=== PATIENT | male | born 1970 | race Asian ===

== ENCOUNTER 2018-05-26 20:07 | Emergency (ER) | payer OTHER, MEDICAID, SELFPAY ==
[2018-05-26 20:17] VITALS: BP 168/103; PULSE 83; RESP 16; TEMP 36.8; O2SAT 100; BMI 26.6
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
[2018-05-26 21:14] LABS: Lactate (Lactic Acid) 1.5 mmol/L (0.7-2.1)
[2018-05-26 21:15] LABS: BUN Creatinine Ratio 25.6 (6-22); Blood Urea Nitrogen 23 mg/dL (9-20); C-Reactive Protein Quant 1.1 mg/dL (<1.0); Carbon Dioxide 26 mmol/L (22-32); Chloride 99 mmol/L (98-107); Estimated Glomerular Filt Rate > 60.0 mL/min (>60); HEMOLYSIS 104 (0-50); Potassium 5.1 mmol/L (3.4-5.1); Sodium 138 mmol/L (137-145)
[2018-05-26 21:18] LABS: Glucose 346 mg/dL (70-100)
[2018-05-26 21:27] LABS: Basophils Absolute Auto 100 /uL (0-100); Basophils Percent Auto 0.8 % (0-2); Eosinophils Absolute Auto 200 /uL (0-450); Eosinophils Percent Auto 1.7 % (2-4); Hematocrit 49.4 % (41-53); Hemoglobin 17.8 g/dL (13.5-17.5); Lymphocytes Absolute Auto 1900 /uL (1100-4500); Lymphocytes Percent Auto 21.6 % (25-40); Mean Corpuscular HGB Conc 36.1 % (30-36); Mean Corpuscular Hemoglobin 31.1 PG (26-34); Mean Corpuscular Volume 86.2 fL (80-100); Monocytes Absolute Auto 400 /uL (0-900); Monocytes Percent Auto 4.2 % (3-14); Neutrophils Absolute Auto 6400 /uL (1500-7000); Neutrophils Percent Auto 71.7 % (50-75); Platelet Count 305 X10^3/uL (150-400); Red Blood Cell Count 5.73 X10^6/uL (4.5-5.9); Red Cell Distribution Width 12.5 % (11.6-14.8); White Blood Cell Count 8.9 X10^3/uL (4.5-11.0)
--- NOTE | 2018-05-26 21:35 | PC.NURSE ---
Pt requested pain medicine, 2mg of Dilaudid. States he has ran out of oxys that wernt working. Pt mother stated she had oxys prescribed to her for a face peel and she gave the leftovers to her son. Provider aware pt is requesting pain medication.
[2018-05-26] MEDS: HYDROCODONE/ACET 5/325 TABLET 1 TAB PO (21:45)
--- NOTE | 2018-05-26 21:46 | PC.NURSE ---
entered room with oral pain medication and pt stated Is that 5mg? That's not going to do anything. I explaind it was a norco with 5mg of hydrocodone and 325 apap and pt stated I know.
[2018-05-26 22:14] LABS: Add Manual Diff / Slide Review SLIDE REVIEW
[2018-05-26 22:15] VITALS: BP 142/97; PULSE 90; O2SAT 98
[2018-05-26 22:15] LABS: RBC Morphology Normal Morphology
[2018-05-26 22:28] LABS: Erythrocyte Sedimentation Rate 30 MM/HR (0-15)
--- NOTE | 2018-05-26 22:35 | PC.NURSE ---
Pt refeses splinting of right forearm. Pt states you guys cant prescribe any pain medication and it hurts worse with the cast on. Provider notified and aknowledged information.
--- NOTE | 2018-05-26 23:22 | PC.NURSE ---
Pt signed AMA form after [facility] discussed benefits and risks of refusal of splint. Pt mother signed as witness. AMA form in chart.
== END 2018-05-26 23:27 | disposition home or self-care (01) ==
PROVIDERS: Emergency Provider Emergency Medicine
DX: S52.101A Unspecified fracture of upper end of right radius, initial encounter for closed fracture (principal)
CPT/HCPCS: 36591; 73090; 73110; 80048; 83605; 84145; 85025; 85651; 86140; 99282; 99283

== ENCOUNTER 2018-06-02 04:11 | Emergency (ER) | payer OTHER, MEDICAID, SELFPAY ==
[2018-06-02 04:29] VITALS: BP 163/112; PULSE 83; RESP 20; TEMP 36.6; O2SAT 98; BMI 26.6
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
[2018-06-02 05:00] VITALS: BP 146/107; PULSE 79; RESP 18; O2SAT 98
== END 2018-06-02 05:01 | disposition home or self-care (01) ==
PROVIDERS: Emergency Provider Emergency Medicine
DX: S52.101A Unspecified fracture of upper end of right radius, initial encounter for closed fracture (principal)
CPT/HCPCS: 99282

== ENCOUNTER → 2018-06-24 13:50 | Outpatient (CLI) | payer OTHER, MEDICAID, SELFPAY ==
[2018-06-24 14:39] LABS: Hemoglobin A1C% w Est Avg Glu 9.3 % (4.0-6.0)
[2018-06-24 15:01] LABS: Alanine Aminotransferase 56 IU/L (21-72); Albumin 4.5 g/dL (3.5-5.0); Albumin Globulin Ratio 1.3 (1.0-2.8); Alkaline Phosphatase 82 U/L (38-126); Aspartate Aminotransferase 26 IU/L (17-59); BUN Creatinine Ratio 18.9 (6-22); Bilirubin Total 0.5 mg/dL (0.2-1.3); Blood Urea Nitrogen 17 mg/dL (9-20); Calcium 9.8 mg/dL (8.4-10.2); Carbon Dioxide 30 mmol/L (22-32); Chloride 98 mmol/L (98-107); Estimated Glomerular Filt Rate > 60.0 mL/min (>60); Globulin 3.6 g/dL (1.7-4.1); Glucose 266 mg/dL (70-100); HEMOLYSIS < 15 (0-50); Potassium 4.1 mmol/L (3.4-5.1); Sodium 139 mmol/L (137-145); Total Protein 8.1 g/dL (6.3-8.2)
== END ==
PROVIDERS: Visit Provider Nurse Practitioner Family
DX: E11.9 Type 2 diabetes mellitus without complications (principal)
CPT/HCPCS: 36415; 80053; 83036

== ENCOUNTER → 2018-09-03 12:03 | Outpatient (CLI) | payer OTHER, MEDICAID, SELFPAY ==
[2018-09-03 12:48] LABS: Hemoglobin A1C% w Est Avg Glu 8.3 % (4.0-6.0)
== END ==
PROVIDERS: PCP Internal Medicine; Visit Provider Internal Medicine
DX: E11.9 Type 2 diabetes mellitus without complications (principal)
CPT/HCPCS: 36415; 83036

== ENCOUNTER → 2018-12-10 09:42 | Outpatient (CLI) | payer OTHER, MEDICAID, SELFPAY ==
[2018-12-10 10:21] LABS: Hemoglobin A1C% w Est Avg Glu 8.9 % (4.0-6.0)
[2018-12-10 10:49] LABS: Cholesterol 156 mg/dL (140-199); HDL Cholesterol 31 mg/dL (40-60); LDL Cholesterol Calculated 62 mg/dL (<100); Triglycerides 317 mg/dL (35-150)
== END ==
PROVIDERS: PCP Internal Medicine; Visit Provider Internal Medicine
DX: E11.9 Type 2 diabetes mellitus without complications (principal)
CPT/HCPCS: 36415; 80061; 83036

== ENCOUNTER → 2019-02-19 17:04 | Outpatient (CLI) | payer OTHER, MEDICAID, SELFPAY ==
[2019-02-19 18:23] LABS: Hemoglobin A1C% w Est Avg Glu 9.8 % (4.0-6.0)
== END ==
PROVIDERS: PCP Internal Medicine; Visit Provider Internal Medicine
DX: E11.9 Type 2 diabetes mellitus without complications (principal)
CPT/HCPCS: 36415; 83036

== ENCOUNTER → 2019-03-07 09:43 | Outpatient (CLI) | payer OTHER, MEDICAID, SELFPAY ==
--- NOTE | 2019-03-07 | DI.MRI.S_ITS ---
PROCEDURE: MR WRIST RT WO CON INDICATIONS: Osteomyelitis TECHNIQUE: Noncontrast coronal proton density fast spin echo and T2 fast spin echo with fat saturation; coronal 3-D gradient echo, axial T1 spin echo and T2 fast spin echo with fat saturation, sagittal T1 spin echo through the wrist. COMPARISON: [facility], CR, XR WRIST RT MIN 3V, 05/26/2018, 20:46. FINDINGS: Image quality: Excellent. Bones and cartilage: The carpal bones are normally aligned. No bone marrow contusions or fractures. No evidence for avascular necrosis. Diffuse degenerative spurring, subchondral sclerosis and marrow signal changes. No definite focal loss of marrow fat signal intensity on T1-weighted images. Carpal ligaments: The scapholunate and lunotriquetral ligaments appear intact. In the absence of intra-articular contrast, the extrinsic carpal ligaments are not well identified. On sagittal images, the pisohamate ligament appears intact. Triangular fibrocartilage complex: The triangular fibrocartilage appears intact. The adjacent meniscal homolog appears normal in the absence of intra-articular contrast. The extensor carpi ulnaris tendon is normal in location and morphology. Tendons and soft tissues: The carpal tunnel structures appear normal, including the median nerve. The ulnar nerve appears normal within Guyon's canal. All six extensor tendon compartments demonstrate normal morphology, without pathologic tendon sheath fluid. No soft tissue ganglion cysts. IMPRESSION: No specific focal marrow signal change to suggest osteomyelitis however contrast-enhanced MRI examination would be more sensitive. Also, consider corroborating dedicated serial wrist radiographic surveillance. Diffuse degenerative changes. Dictated by: Michel Ny M.D. on 03/09/2019 at 9:54 Approved by: Michel Ny M.D. on 03/09/2019 at 10:01
== END ==
PROVIDERS: PCP Internal Medicine; Visit Provider Orthopaedic Surgery
DX: M86.9 Osteomyelitis, unspecified (principal)
CPT/HCPCS: 73221

== ENCOUNTER → 2019-06-11 11:45 | Outpatient (CLI) | payer OTHER, MEDICAID, SELFPAY ==
[2019-06-11 12:59] LABS: Hemoglobin A1C% w Est Avg Glu 10.4 % (4.0-6.0)
[2019-06-11 14:07] LABS: Alanine Aminotransferase 19 IU/L (<50); Albumin 4.5 g/dL (3.5-5.0); Albumin Globulin Ratio 1.4 (1.0-2.8); Alkaline Phosphatase 89 U/L (38-126); Aspartate Aminotransferase 22 IU/L (17-59); Bilirubin Total 1.1 mg/dL (0.2-1.3); Blood Urea Nitrogen 15 mg/dL (9-20); Carbon Dioxide 31 mmol/L (22-32); Chloride 96 mmol/L (98-107); Estimated Glomerular Filt Rate > 60.0 mL/min (>60); Globulin 3.2 g/dL (1.7-4.1); Glucose 442 mg/dL (70-100); HEMOLYSIS < 15 (0-50); Potassium 4.7 mmol/L (3.4-5.1); Sodium 139 mmol/L (137-145); Total Protein 7.7 g/dL (6.3-8.2)
== END ==
PROVIDERS: PCP Internal Medicine; Visit Provider Internal Medicine
DX: E11.9 Type 2 diabetes mellitus without complications (principal)
CPT/HCPCS: 36415; 80053; 83036

== ENCOUNTER → 2019-09-21 14:00 | Outpatient (CLI) | payer OTHER, MEDICAID, SELFPAY ==
[2019-09-21 16:29] LABS: Hemoglobin A1C% w Est Avg Glu 9.5 % (4.0-6.0)
[2019-09-21 16:43] LABS: Alanine Aminotransferase 21 IU/L (<50); Albumin 4.3 g/dL (3.5-5.0); Albumin Globulin Ratio 1.3 (1.0-2.8); Alkaline Phosphatase 66 U/L (38-126); Aspartate Aminotransferase 31 IU/L (17-59); Bilirubin Total 0.9 mg/dL (0.2-1.3); Blood Urea Nitrogen 11 mg/dL (9-20); Calcium 9.6 mg/dL (8.4-10.2); Carbon Dioxide 25 mmol/L (22-32); Chloride 103 mmol/L (98-107); Estimated Glomerular Filt Rate 54.8 mL/min (>60); Globulin 3.3 g/dL (1.7-4.1); Glucose 273 mg/dL (70-100); HEMOLYSIS < 15 (0-50); Potassium 4.2 mmol/L (3.4-5.1); Sodium 140 mmol/L (137-145); Total Protein 7.6 g/dL (6.3-8.2)
== END ==
PROVIDERS: PCP Internal Medicine; Referring Provider Internal Medicine; Visit Provider Internal Medicine
DX: R03.0 Elevated blood-pressure reading, without diagnosis of hypertension (principal); E11.9 Type 2 diabetes mellitus without complications
CPT/HCPCS: 36415; 80053; 83036

== ENCOUNTER → 2019-12-24 07:04 | Outpatient (CLI) | payer OTHER, MEDICAID, SELFPAY ==
[2019-12-24 07:23] LABS: Bacteria Urine None Seen; RBC Urine None Seen (0-5/HPF); WBC Urine None Seen (0-5/HPF)
[2019-12-24 08:14] LABS: Appearance Urine UA CLEAR; Bilirubin Urine UA NEGATIVE (NEGATIVE); Color Urine UA YELLOW; Glucose Urine UA 1+ g/dL (Negative); Ketones Urine UA NEGATIVE (NEGATIVE); Leukocyte Esterase Urine UA NEGATIVE (NEGATIVE); Nitrite Urine UA NEGATIVE (Negative); Occult Blood Urine UA NEGATIVE (Negative); Protein Urine UA NEGATIVE (Negative); Specific Gravity Urine UA 1.015 (1.000-1.035); Urobilinogen Urine UA 0.2 E.U./dL (0.2); pH Urine UA 5.5 (4.5-8.0)
[2019-12-24 08:21] LABS: Culture Indicated Urine Cult Not Indicated; Urine Comments Microscopic Normal
[2019-12-24 08:30] LABS: Hemoglobin A1C% w Est Avg Glu 10.8 % (4.0-6.0)
[2019-12-24 08:45] LABS: Alanine Aminotransferase 22 IU/L (<50); Albumin 4.3 g/dL (3.5-5.0); Albumin Globulin Ratio 1.3 (1.0-2.8); Alkaline Phosphatase 80 U/L (38-126); Aspartate Aminotransferase 29 IU/L (17-59); Blood Urea Nitrogen 19 mg/dL (9-20); Calcium 9.9 mg/dL (8.4-10.2); Carbon Dioxide 32 mmol/L (22-32); Chloride 103 mmol/L (98-107); Cholesterol 176 mg/dL (140-199); Estimated Glomerular Filt Rate > 60.0 mL/min (>60); Globulin 3.2 g/dL (1.7-4.1); Glucose 106 mg/dL (70-100); HDL Cholesterol 36 mg/dL (40-60); HEMOLYSIS < 15 (0-50); LDL Cholesterol Calculated 79 mg/dL (<100); Potassium 4.4 mmol/L (3.4-5.1); Sodium 141 mmol/L (137-145); Total Protein 7.5 g/dL (6.3-8.2); Triglycerides 304 mg/dL (35-150)
== END ==
PROVIDERS: PCP Internal Medicine; Referring Provider Internal Medicine; Visit Provider Internal Medicine
DX: N18.2 Chronic kidney disease, stage 2 (mild) (principal); E11.9 Type 2 diabetes mellitus without complications
CPT/HCPCS: 36415; 80053; 80061; 81001; 83036

== ENCOUNTER 2021-05-22 20:31 | Emergency (ER) | payer OTHER, MEDICAID, SELFPAY ==
[2021-05-22 20:34] VITALS: BP 158/102; PULSE 92; RESP 16; TEMP 35.7; O2SAT 99; BMI 23.5
--- NOTE | 2021-05-22 21:50 | ED.GENADULT ---
HPI - General Adult General Chief complaint: Diabetic Problem Stated complaint: DIABETIC OUT OF INSULIN PEEING EVERY TWO HOURS Time Seen by Provider: 05/22/21 21:32 Source: patient Mode of arrival: Ambulatory History of Present Illness HPI narrative: Patient is a 50-year-old male. Is an insulin-dependent diabetic. Has been out of his medication for the past several weeks. He states that he is having problems sleeping at night because of pain in his hands which is chronic and also states he feels poorly because his insulin has been elevated. He does not have a primary doctor. Normally takes Lantus 25 units in the morning and at night. He has been urinating frequently as well. Is here for a refill of his insulin. Related Data Previous Rx's Medication Instructions Recorded insulin glargine 100 unit/mL (3 25 unit (0.25 mL) SUBCUT BID #15 ml 05/22/21 mL) subcutaneous pen (Lantus Solostar U-100 Insulin) insulin syr/ndl U100 half dav 0.3 #100 ea 05/22/21 mL 30 gauge x 5/16 Allergies Allergy/AdvReac Type Severity Reaction Status Date / Time morphine AdvReac Dizziness Verified 05/26/18 20:25 Review of Systems Constitutional Constitutional: Reports system reviewed and no additional complaints, except as documented Cardiovascular Cardiovascular: Reports system reviewed and no additional complaints, except as documented Respiratory Respiratory: Reports system reviewed and no additional complaints, except as documented Gastrointestinal Gastrointestinal: Reports system reviewed and no additional complaints, except as documented Genitourinary Genitourinary: Reports system reviewed and no additional complaints, except as documented Integumentary/Breasts Skin/Breast: Reports system reviewed and no additional complaints, except as documented Neurologic Neurologic: Reports system reviewed and no additional complaints, except as documented Psychiatric Psychiatric: Reports system reviewed and no additional complaints, except as documented Hematologic/Lymphatic On Anticoagulants: No Patient History Medical History Diabetes mellitus Healthy adult Surgical History S/P ORIF (open reduction internal fixation) fracture Social History Smoking Status: Never smoker Smoking Status: Never smoker alcohol intake frequency: 0-2 drinks per day Substance Use Type: does not use Exam Initial Vital Signs Initial Vital Signs: Vital Signs Temperature 96.3 F L 05/22/21 20:34 Pulse Rate 92 H 05/22/21 20:34 Respiratory Rate 16 05/22/21 20:34 Blood Pressure 158/102 H 05/22/21 20:34 Pulse Oximetry 99 05/22/21 20:34 HENMT Head: normal to inspection and normocephalic Resp Effort & Inspection: normal respiratory effort Cardio Rate: regular rate Skin General: no rashes or lesions noted Neuro General: patient alert, patient awake and moves all extremities Extrem General: normal to inspection Psych Appearance: grossly normal and well kempt Course Orders Ordered: Discontinued Medications Insulin Glargine (Insulin Glargine 100 Unit/Ml 3ml Pen) 25 unit SUBCUT NOW ONE Stop: 05/22/21 21:52 Last Admin: 05/22/21 22:17 Dose: 25 unit Documented by: JEANIE Kirkigned by: GERALDINE Vital Signs Vital signs: Vital Signs - 8 hr 05/22/21 20:34 Temperature 96.3 F L Pulse Rate 92 H Respiratory Rate 16 Blood Pressure 158/102 H Pulse Oximetry 99 Medical Decision Making Lab Data Labs: Point of Care Testing Glucose POC 434 Urine Dip Bedside Urine Glucose 1000 mg/dl Bedside Urine Bilirubin - Negative Bedside Urine Ketone - Negative Urine Specific [place] 1.015 Bedside Urine Occult Blood - Negative Bedside Urine pH 6.0 Bedside Urine Protein - Negative Bedside Urine Urobilinogen - Negative Bedside Urine Nitrite - Negative Bedside Urine Leukocytes - Negative Esterase Point of care testing: Point of Care Testing Glucose POC 434 Urine Dip Bedside Urine Glucose 1000 mg/dl Bedside Urine Bilirubin - Negative Bedside Urine Ketone - Negative Urine Specific [place] 1.015 Bedside Urine Occult Blood - Negative Bedside Urine pH 6.0 Bedside Urine Protein - Negative Bedside Urine Urobilinogen - Negative Bedside Urine Nitrite - Negative Bedside Urine Leukocytes - Negative Esterase [facility] Narrative Medical decision making narrative: Patient is alert oriented. He is hyperglycemic. Is also hypertensive. Patient would like a refill of his insulin which was sent to the pharmacy of his choice. He was also given a dose of his insulin here in the emergency department. Will hold on further workup for now. Low suspicion for DKA. Patient was given phone numbers that he can contact to find a primary doctor in the area. He is given return precautions. He expressed understanding agreement. Discharge Plan Departure Patient Disposition: Home Clinical Impression: Diabetes mellitus, Hypertension, Medication refill Instructions: Essential Hypertension, DI for Hyperglycemia -- Adult Activity Restrictions/Additional Instructions: I do recommend that you contact the call [facility] at [phone]. They can help you establish a primary provider. Given your chronic medical issues it is important that you have a relationship with a primary doctor. Take all of your medications as directed. Return to the emergency department for any new or worsening symptoms. Prescriptions: New Lantus Solostar U-100 Insulin 100 unit/mL (3 mL) insulin pen 25 unit SUBCUT BID Qty: 15 2RF (DME) insulin syr/ndl U100 half dav 0.3 mL 30 gauge x 5/16 syringe See Rx Instructions .Route Qty: 100 0RF Rx Instructions: As directed Referrals: Hermes Castillo MD [Primary Care Provider] -
[2021-05-22] MEDS: INSULIN GLARGINE 100 UNIT/ML 3ML PEN 25 UNIT SUBCUT (22:17)
--- NOTE | 2021-05-28 18:16 | PC.NURSE ---
pt arrived to ER stating he was out of the insulin needles for his pen. states the pharmacy won't fill the prescription until the 04 of June. states the needles are expensive out of pocket he is requesting 10 insulin needles for his pen. States if I don't get my needles , I will be back and be paying more money.Tha, nursing reactor fueling supervisor sent down 22 insulin needles for the patient's insulin pen. given to patient.
== END 2021-05-22 22:25 | disposition home or self-care (01) ==
PROVIDERS: Emergency Provider Emergency Medicine; PCP Internal Medicine
DX: E11.65 Type 2 diabetes mellitus with hyperglycemia (principal); I10 Essential (primary) hypertension; Z79.4 Long term (current) use of insulin
CPT/HCPCS: 81003; 82962; 96372; 99282; 99283

== ENCOUNTER 2021-07-28 22:32 | Emergency (ER) | payer OTHER, MEDICAID, SELFPAY ==
[2021-07-28 22:38] VITALS: BMI 24.3
[2021-07-28 22:41] VITALS: BP 147/93; PULSE 90; RESP 18; TEMP 36.5; O2SAT 99
--- NOTE | 2021-07-28 22:55 | ED_ITS ---
HPI - General Adult General Chief complaint: Diabetic Problem Stated complaint: NEED INSULIN SWELLING OF LEGS Time Seen by Provider: 07/28/21 22:41 Source: patient Mode of arrival: Ambulatory History of Present Illness HPI narrative: Patient is a 50-year-old male. Is an insulin-dependent diabetic. He is here for a refill of his insulin and ?a full blood workup ?patient was seen here in the emergency department by myself a couple months ago for very similar circumstances. He did not have a primary doctor in the area. I did refill his insulin. Since that time he has not attempted to make any contact with the primary doctor. He states he has had no time to do this. He has been traveling back and forth between [facility] and [place]. He states that ever since his primary doctor in the area left he cannot find anyone. He has had some issues with some primary doctors and has also seen an submarine element coordinator which he states did not put him on a insulin regiment that worked for his body so he just decided not to go and see anyone. He stated that he just decided that he was going to get his insulin refilled from the emergency department. He also states that his lower extremities have been swelling. Specifically he travels back and forth between [facility] and [place]. When he puts his legs the swelling resolves. He also states he needs a ?full blood workup cannot give a specific reason for this other than he needs because he is diabetic. Related Data Previous Rx's Medication Instructions Recorded insulin glargine 100 unit/mL (3 25 unit (0.25 mL) SUBCUT BID #15 ml 05/22/21 mL) subcutaneous pen (Lantus Solostar U-100 Insulin) insulin syr/ndl U100 half dav 0.3 #100 ea 05/22/21 mL 30 gauge x 16 insulin glargine 100 unit/mL 25 unit (0.25 mL) SUBCUT BID #10 ml 07/28/21 subcutaneous solution (Lantus U-100 Insulin) Allergies Allergy/AdvReac Type Severity Reaction Status Date / Time morphine AdvReac Dizziness Verified 07/28/21 22:38 Review of Systems Review of Systems ROS Unobtainable: All systems reviewed & are unremarkable except as noted in HPI and below Patient History Medical History Diabetes mellitus Healthy adult Surgical History S/P ORIF (open reduction internal fixation) fracture Social History Smoking Status: Never smoker Smoking Status: Never smoker alcohol intake frequency: 0-2 drinks per day Substance Use Type: does not use Exam Initial Vital Signs Initial Vital Signs: Vital Signs Temperature 97.7 F 07/28/21 22:41 Pulse Rate 90 07/28/21 22:41 Respiratory Rate 18 07/28/21 22:41 Blood Pressure 147/93 H 07/28/21 22:41 Pulse Oximetry 99 07/28/21 22:41 Resp Effort & Inspection: normal respiratory effort Cardio Rate: regular rate Neuro General: patient alert, patient awake and moves all extremities Extrem General: No edema Course Vital Signs Vital signs: Vital Signs - 8 hr 07/28/21 22:41 Temperature 97.7 F Pulse Rate 90 Respiratory Rate 18 Blood Pressure 147/93 H Pulse Oximetry 99 Medical Decision Making Lab Data Labs: Point of Care Testing Glucose POC 347 Point of care testing: Point of Care Testing Glucose POC 347 MDM Narrative Medical decision making narrative: Low suspicion for DKA given the patient's presentation. He is somewhat hyperglycemic. His vital signs unremarkable. Exam is unremarkable. Informed the patient that he does not require a ?full blood workup here in the emergency department and that this is best done by primary provider. I explained to him that the emergency department does not an appropriate place for him to be getting refills of his insulin. Informed him that he did have a chronic medical condition that he needs to be seen by primary doctor and if he is having problems with what he describes as a sliding scale that he does need to be seen by an submarine element coordinator but again this would have to go through her primary provider. He deny the offer for phone numbers for local primary doctor groups however he was given these numbers and his discharge instructions any ways. I will refill his insulin because he obviously needs this but I did not refill a request that he had for Ambien. He did not seem at all interested in attempting to find a primary doctor would not be surprised if he presents the emergency department again asking for refill of insulin. This happens do feel that he needs to continue to be educated on the proper use the medical system. Discharge Plan Departure Patient Disposition: Home Clinical Impression: Diabetes mellitus Instructions: How to Take Care of Your Feet If You Have Diabetes Activity Restrictions/Additional Instructions: It is not appropriate to just continue to get your medications filled in an emergency department. You have a complicated disease that needs to be followed by a primary provider. You can contact the [facility] at [phone]. There our providers in this group that are taking new patients. You can also contact the [facility] group [phone]. You can also contact [facility] at [phone]. Prescriptions: New Lantus U-100 Insulin 100 unit/mL solution 25 unit SUBCUT BID Qty: 10 2RF No Action Lantus Solostar U-100 Insulin 100 unit/mL (3 mL) insulin pen 25 unit SUBCUT BID Qty: 15 2RF (DME) insulin syr/ndl U100 half dav 0.3 mL 30 gauge x 5/16 syringe See Rx Instructions .Route Qty: 100 0RF Rx Instructions: As directed Referrals: Hermes Castillo MD [Primary Care Provider] -
== END 2021-07-28 23:03 | disposition home or self-care (01) ==
PROVIDERS: Emergency Provider Emergency Medicine; PCP Internal Medicine
DX: E11.65 Type 2 diabetes mellitus with hyperglycemia (principal); Z79.4 Long term (current) use of insulin
CPT/HCPCS: 82962; 99282